=== PATIENT | male | born 1975 | race Caucasian/White ===

== ENCOUNTER 2017-11-12 17:03 | Inpatient (IN) | payer OTHER ==
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
[2017-11-12] MEDS ORDERED: MIDAZOLAM 2 MG/2 ML VIAL ONE (17:35)
[2017-11-12] MEDS ORDERED: fentaNYL 100 MCG/2 ML INJ ONE (17:35)
[2017-11-12 17:37] LABS: INR 0.98 (0.83-1.16); PROTIME(PATIENT) 13.2 SEC (12.0-15.0)
[2017-11-12] MEDS ORDERED: MIDAZOLAM 2 MG/2 ML VIAL IVP ONE (17:42)
[2017-11-12] MEDS ORDERED: fentaNYL 100 MCG/2 ML INJ IVP ONE ×2 (17:42→17:44)
[2017-11-12] MEDS ORDERED: IOPAMIDOL (ISOVUE-300) 100 ML BTL ONE (17:51)
[2017-11-12 17:54] LABS: PLATELET COUNT 192 10^3/uL (150-400)
[2017-11-12] MEDS ORDERED: ACETAMINOPHEN 325 MG TAB PO PRN (19:34)
[2017-11-12] MEDS ORDERED: ONDANSETRON DISINTEGRATING 4 MG TAB PO PRN (19:34)
[2017-11-12] MEDS ORDERED: ONDANSETRON 4 MG/2 ML VIAL IVP PRN (19:34)
[2017-11-12] MEDS ORDERED: ZOLPIDEM TARTRATE 5 MG TAB PO PRN (19:34)
[2017-11-12] MEDS ORDERED: IBUPROFEN 600 MG TAB PO PRN (19:39)
[2017-11-12] MEDS ORDERED: D5W 1/2 NS 1,000 ML IV SCH (19:45)
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
[2017-11-12] MEDS: KETOROLAC 15 MG/1 ML SDV IVP SCH (20:59)
[2017-11-12] MEDS: HYDROCODONE/APAP 5/325 TAB PO PRN (21:03)
--- NOTE | 2017-11-12 21:28 | GOP ---
[f rep st] OPERATIVE REPORT DATE OF OPERATION: 11/12/2017 SURGEON: Michael Hernandez MD PREOPERATIVE DIAGNOSIS: Left pneumothorax and multiple rib fractures. POSTOPERATIVE DIAGNOSIS: Left pneumothorax and multiple rib fractures. PROCEDURE PERFORMED: A left tube thoracostomy with intravenous sedation. FINDINGS: The patient was found to have a well-expanded, in good position chest tube after resolution of pneumothorax. ESTIMATED BLOOD LOSS: Negligible. Taken to the recovery room in good condition. DESCRIPTION OF PROCEDURE: Patient was sedated with Versed and fentanyl. He was prepped and draped in the usual sterile fashion, and anesthetized with 1% Xylocaine with epinephrine. A short incision was made over the midaxillary line in the 6th intercostal space. Dissection extended subcutaneously up over the rib, and the musculature was further infiltrated with lidocaine, and then blunt entry into the chest was done, and a 24-[place] chest tube was inserted without difficulty up into the apex of the chest. It was secured to the skin with a 2-0 silk suture, connected to Pleur-Evac drainage system. He tolerated the procedure quite well. COMPLICATIONS: None. /[id number]/MODL MTDD
[2017-11-13] MEDS ORDERED: KETOROLAC 15 MG/1 ML SDV IVP SCH
[2017-11-13] MEDS: HYDROCODONE/APAP 5/325 TAB PO PRN ×3 (01:52→16:41)
[2017-11-13] MEDS: KETOROLAC 15 MG/1 ML SDV IVP SCH ×4 (06:03→23:30)
[2017-11-13 06:10] LABS: PLATELET COUNT 152 10^3/uL (150-400)
--- NOTE | 2017-11-13 08:24 | SOAPPROG ---
SOAP Progress Note Assessment/Plan: Assessment: pain controlled c collar chst tube no air leak min output Plan: 11/13/17 08:24 Objective: Vital Signs Temp Pulse Resp BP Pulse Ox 37.1 C 55 L 16 104/59 L 94 11/13/17 08:00 11/13/17 08:00 11/13/17 08:00 11/13/17 08:00 11/13/17 08:00 Laboratory Results 11/13/17 06:00 11/12/17 11/13/17 11/14/17 05:59 05:59 05:59 Intake Total 600 Output Total 1100 Balance -500 PT 13.2 SEC (12.0-15.0) 11/12/17 17:03 INR 0.98 (0.83-1.16) 11/12/17 17:03 ICD10 Worksheet Patient Problems: Problems Problem Status Onset Fracture of left distal radius Acute Pneumothorax on left Acute Rib fractures Acute
--- NOTE | 2017-11-13 08:26 | TRAUMAPN ---
Trauma Progress Note Assessment/Plan: pain controlled c collar chst tube no air leak min output cxr this m if no ptx then water seal tx from icu ortho cosult nsg consult Plan: 11/13/17 08:24 11/13/17 08:25 Objective: Vital Signs Temp Pulse Resp BP Pulse Ox 37.1 C 55 L 16 104/59 L 94 11/13/17 08:00 11/13/17 08:00 11/13/17 08:00 11/13/17 08:00 11/13/17 08:00 Laboratory Results 11/13/17 06:00 11/12/17 11/13/17 11/14/17 05:59 05:59 05:59 Intake Total 600 Output Total 1100 Balance -500 PT 13.2 SEC (12.0-15.0) 11/12/17 17:03 INR 0.98 (0.83-1.16) 11/12/17 17:03
--- NOTE | 2017-11-13 09:37 | PDMN ---
Medical Necessity Medical necessity: M500 pneumothorax: A-2 days, M545 Rib fractures A-2 days: traumatic pneumothorax req. Chest tube, with 3 or more traumatic rib fractures.
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
[2017-11-14] MEDS: KETOROLAC 15 MG/1 ML SDV IVP SCH (05:39)
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
[2017-11-14] MEDS ORDERED: MAGNESIUM HYDROXIDE 30 ML UDCUP PO PRN (09:38)
[2017-11-14] MEDS ORDERED: POLYETHYLENE GLYCOL 3350 17 GM PKT PO PRN (09:38)
[2017-11-14] MEDS ORDERED: BISACODYL 10 MG SUPP PR PRN (09:38)
[2017-11-14] MEDS ORDERED: LACTULOSE 20 GM/30 ML UDCUP PO PRN (09:38)
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
[2017-11-14] MEDS: ENOXAPARIN 40 MG/0.4 ML SYR SC SCH (11:12)
[2017-11-14] MEDS: IBUPROFEN 800 MG TAB PO SCH ×2 (14:03→21:56)
--- NOTE | 2017-11-14 17:09 | SOAPPROG ---
Downtime Inpatient MD Late Entry SOAP Note: Left closed tube thoracostomy air leak has diminished compared to this morning but remains present with cough/Valsalva I anticipate he will have CT removal in AM if no air leak overnight and discharge tomorrow afternoon. Discuss precautions for recent concussion/FU with neurosurgery, ortho, trauma surgery Estela Nayak MD, FACS
[2017-11-14] MEDS: SENNOSIDES/DOCUSATE SODIUM TAB PO SCH (21:56)
[2017-11-15] MEDS: IBUPROFEN 800 MG TAB PO SCH ×2 (06:12→14:09)
[2017-11-15] MEDS: SENNOSIDES/DOCUSATE SODIUM TAB PO SCH (08:35)
[2017-11-15] MEDS: ENOXAPARIN 40 MG/0.4 ML SYR SC SCH (08:35)
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
[2017-11-15 09:20] LABS: PLATELET COUNT 151 10^3/uL (150-400)
[2017-11-15 16:24] VITALS: BP 132/76
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
== END 2017-11-15 17:30 | disposition home or self-care (01) | DRG 86 ==
LOC: F2N 18:32 → OBSVTOIN 19:34 → F2N 21:21 → F3N 11-13 18:45
PROVIDERS: ADMIT Surgery; ATTEND Surgery
PROC: 0W9930Z Drainage of Right Pleural Cavity with Drainage Device, Percutaneous Approach (ICD-10-PCS; principal; 2017-11-12)
DX: S02.113A Unspecified occipital condyle fracture, initial encounter for closed fracture (principal); S22.42XA Multiple fractures of ribs, left side, initial encounter for closed fracture; S27.0XXA Traumatic pneumothorax, initial encounter; S52.502A Unspecified fracture of the lower end of left radius, initial encounter for closed fracture; R40.2412 Glasgow coma scale score 13-15, at arrival to emergency department; S12.301A Unspecified nondisplaced fracture of fourth cervical vertebra, initial encounter for closed fracture; V96.1 Hang-glider accident injuring occupant; Y93.35 Activity, hang gliding; Y92.89 Other specified places as the place of occurrence of the external cause
CPT/HCPCS: 80305; 82947-QW; 92523-GN; 96374; 97116-GP; 97161-GP; 97166-GO; 97530-GO; 97535-GO; G0480; J1650; J1885; J2250; J2270; J3010; L0172; Q9967

== ENCOUNTER → 2017-11-16 | Outpatient (CLI) | payer OTHER | LOC: FIMAGING 13:44 | PROVIDERS: ATTEND Surgery | DX: J94.8 Other specified pleural conditions (principal) ==

== ENCOUNTER → 2017-11-17 | Outpatient (CLI) | payer OTHER | LOC: FIMAGING 12:34 | PROVIDERS: ATTEND Surgery | DX: J93.9 Pneumothorax, unspecified (principal); J90 Pleural effusion, not elsewhere classified ==

== ENCOUNTER → 2017-11-19 | Outpatient (CLI) | payer OTHER | LOC: FIMAGING 14:33 | PROVIDERS: ATTEND Surgery | DX: J94.8 Other specified pleural conditions (principal); J43.9 Emphysema, unspecified ==

== ENCOUNTER → 2017-12-05 | Outpatient (CLI) | payer OTHER | LOC: FIMAGING 15:48 | PROVIDERS: ATTEND Orthopaedic Surgery | DX: J95.811 Postprocedural pneumothorax (principal); S52.502D Unspecified fracture of the lower end of left radius, subsequent encounter for closed fracture with routine healing ==